=== PATIENT | male | born 1945 | race Caucasian/White ===

== ENCOUNTER 2017-04-24 08:50 | Inpatient (IN) | payer MEDICARE ==
[~2017-04-24] VITALS: Ht 180.3 cm; Wt 81.6 kg
--- NOTE | ~2017-04-24 | PR ---
[place], [place] PROGRESS NOTE NAME: ISAAC THAYER UNIT #: [id number] ROOM: 311 DOCTOR: SNEHA MULTANI,BRANNON BIRTHDATE: [birth year] DOS: CHIEF COMPLAINT: Sleepy. SUBJECTIVE: The patient is 71-year-old male admitted with brief psychotic reaction where he was very combative, was irritable and agitated and he was responding to the unseen. He is started on meds and today seen sitting in Angie chair in dining area. He is very drowsy, but did open his eyes, looked at me and then he dozed off. As per nurse's report, he has been calmer, had some sundowning last evening, did not sleep well last night, but now he is dozing off. He does need personal care and help him to feed. He had a little breakfast, took his meds and has been drinking fluids. MENTAL STATUS EXAMINATION: The patient is very drowsy, did not engage much, hardly any conversation, sitting in Angie chair. He is calmer at present. PLAN: The patient is calmer with current meds, so we shall continue with the same and provide personal care and shall try to engage him in guerrero milieu when he is more stable. BRANNON HOOVER MD CM:PNTRANS [id number] BRANNON HOOVER MD 04/27/17 1037 interface
--- NOTE | ~2017-04-24 | PR ---
[place], [place] PROGRESS NOTE NAME: ISAAC THAYER UNIT #: [id number] ROOM: 311 DOCTOR: KAREEN PIZARRO,MY BIRTHDATE: [birth year] DOS: 04/26/2017 CHIEF COMPLAINT: "Cough." SUMMARY OF THE VISIT: The patient was interviewed while sleeping in a reclined Angie chair in quiet room across the nurse station. The patient attempted to open his eyes and turn to sides when requested, but he was not able to. The conversation was short and limited to one word "uhuh". The patient sometimes nods his head. The patient appears somnolent secondary to medications. MENTAL STATUS: The patient is alert and awake somewhat secondary to medications effect. He is oriented to self only. According to staff, the patient is still aggressive. PLAN: We will increase Exelon patch to 13.3 every day. Continue Risperdal 1 mg twice daily to decrease his agitation and aggression and Namenda 5 mg b.i.d. We will continue to engage the patient in individual and guerrero milieu activity. The patient will be discharged when psychiatrically stable. MY KAREEN, DO GRADY ALVES MD CM:PNTRANS [id number] JOHN MATHUR DO 05/01/17 0726 interface
--- NOTE | ~2017-04-24 | PR ---
[place], [place] PROGRESS NOTE NAME: ISAAC THAYER UNIT #: [id number] ROOM: 311 DOCTOR: SNEHA MULTANI,BRANNON BIRTHDATE: [birth year] DOS: CHIEF COMPLAINT: He is sleepy. SUBJECTIVE: The patient is seen today, sitting in a Angie chair in dining area, eyes closed, did open his eyes, looked at me and then dozed off, did not say a word. As per nurse's report, he does get some agitation in the evening, otherwise he is calmer. He did eat 75% of his breakfast this morning. He does need personal care and help to feed. MENTAL STATUS EXAMINATION: The patient did open his eyes, looked at me and then dozed off. He did not say a word, though he has been calmer. No alan or hypomania at present and no overt psychosis. PLAN: The patient is calmer, not combative, accept in the evening hours when he has some restlessness, so we shall continue his care, continue his medicines and try and engage him in guerrero milieu when he is more stable. BRANNON HOOVER MD CM:PNDARIO 5 [phone] BRANNON HOOVER MD 04/28/17 100 interface
--- NOTE | ~2017-04-24 | PR ---
[place], [place] PROGRESS NOTE NAME: ISAAC THAYER UNIT #: [id number] ROOM: 311 DOCTOR: KAREEN PIZARRO,MY BIRTHDATE: [birth year] DOS: 04/26/2017 CHIEF COMPLAINT: "I don't want to kill myself because I am a [employer] and it is sin." SUMMARY OF THE VISIT: The patient was interviewed in his room after finishing approximately 90% of his breakfast. The patient did not sleep much last night according to him, said he was up, thinking of his throughout the night. He has been for 30+ years. She is the one taking care of all of his medications; therefore, he does not know which is for which. He has not had medications for at least 1 week since she has been hospitalized. The patient tears up when talking about his , Sera. States he does not have much relationship with his sons and that if he , they will not pay much attention. When offered to get up and go to dining room, he states he does not want to because he will be very tired due to his medical conditions. MENTAL STATUS: The patient is alert and oriented x 3. Mood is overwhelmingly depressed. The patient cried when talked about his and sons. No overt hallucinations or delusions noted. PLAN: We will increase Remeron to 22.5 mg at bedtime. We will engage the patient in individual and guerrero milieu activity, return home when the patient is psychiatrically stable. MY KAREEN, DO GRADY ALVES MD CM:PNTRANS [phone] MY KAREEN DO 04/26/17 1323 RAJI [email or web address].R
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
--- NOTE | ~2017-04-24 | PR ---
[place], [place] PROGRESS NOTE NAME: ISAAC THAYER UNIT #: [id number] ROOM: 311 DOCTOR: GRADY ALVES MD BIRTHDATE: [birth year] DOS: 04/29/2017 CHIEF COMPLAINT: The patient was nonverbal. SUMMARY OF THE VISIT: The patient was interviewed or attempted to be interviewed as he sat in a Angie chair in the quiet room. Nurses report that he had a very bad evening and he escalated rapidly, becoming both verbally and physically aggressive, requiring a p.r.n. intervention of Ativan, which was effective, but which caused some sedation and now somnolence. The patient continues by nursing report to fluctuate between periods of extreme lethargy with extreme combativeness. He is very hard to redirect and he processes commands very slowly and more often than not does not follow commands. Nurses also report he is having some issues with swallow, so we will follow up on this. MENTAL STATUS EXAMINATION: Mental status is limited today because of his lack of somnolence. PLAN: I will increase the Namenda from 5 mg twice a day to 10 mg in the morning and 5 mg at night, augmenting Exelon patch 13.3 mg a day. We will order a swallow evaluation to determine whether or not this is an issue and allow the hospitalist to treat accordingly. We will attempt to engage in individual and guerrero milieu activities, returning to the least restrictive environment when psychiatrically stable. GRADY ALVES MD CM:PNTRANS 0 6 GRADY ALVES MD 04/29/17 0908 interface
[2017-04-24] MEDS ORDERED: CENTRUM SILVER1 EAC2 PO (09:41)
[2017-04-24] MEDS ORDERED: ARICEPT10 M1 PO (09:41)
[2017-04-24] MEDS ORDERED: FLOMAX0.4 MG PO (09:42)
[2017-04-24] MEDS ORDERED: ZOLOFT25 MG PO (09:42)
[2017-04-24] MEDS ORDERED: MELATONIN1 MG PO (09:45)
[2017-04-24] MEDS ORDERED: SEROQUEL25 MG PO (09:46)
[2017-04-24 10:39] VITALS: BP 122/87
[2017-04-24 12:25] LABS: BASO % 0.2 % (0.0-1.0); EOS # 0.1 10*3/uL (0.0-0.4); HEMATOCRIT 36.1 % (42.0-52.0); HEMOGLOBIN 12.2 g/dl (14.0-18.0); LYMPH # 0.7 10*3/uL (1.3-4.4); LYMPH % 13.1 % (27.0-41.0); MEAN CELL VOLUME 95.5 fl (80.0-94.0); MEAN CORPUSCULAR HGB 32.3 pg (27.0-31.0); MEAN CORPUSCULAR HGB CONC 33.8 g/dl (33.0-37.0); MEAN PLATELET VOLUME 9.9 fl (9.6-12.3); MONO # 0.5 10*3/uL (0.1-1.0); MONO % 8.9 % (3.0-9.0); NEUT # 4.1 10*3/uL (2.3-7.9); NEUT % 75.6 % (47.0-73.0); PLATELET COUNT AUTOMATED 165 10*3/uL (130-400); RED BLOOD COUNT 3.78 10*6/uL (4.50-5.90); RED CELL DISTRI WIDTH 12.4 % (0-14.5); WHITE BLOOD COUNT 5.5 10*3/uL (4.8-10.8)
[2017-04-24 12:52] LABS: ALBUMIN 3.8 gm/dl (3.1-4.5); ALKALINE PHOSPHATASE 112 U/L (45-117); BUN 26 mg/dl (7-24); CHLORIDE 105 mmol/L (98-107); CHOLESTEROL 166 mg/dL (<200); CREATININE 1.04 mg/dL (0.70-1.30); HDL CHOLESTEROL 64 mg/dl (40-60); LDL CHOLESTEROL 85 mg/dL (9-159); POTASSIUM 4.1 mmol/L (3.5-5.1); SGOT/AST 19 IU/L (3-35); SGPT/ALT 22 U/L (12-78); SODIUM 140 mmol/L (136-145); TOTAL PROTEIN 7.1 gm/dL (6.4-8.2); TRIGLYCERIDES 85 mg/dl (<150); VLDL CHOLESTEROL 17 mg/dL (6-40)
[2017-04-24 13:28] LABS: VITAMIN D, 25-HYDROXY 13.3 ng/mL (30-100)
[2017-04-24 20:00] VITALS: BP 116/57
[2017-04-25 08:09] VITALS: BP 123/62
[2017-04-25 20:12] VITALS: BP 145/68
[2017-04-26 07:45] VITALS: BP 134/72
[2017-04-26 20:00] VITALS: BP 108/60
[2017-04-27 05:11] LABS: BASO % 0.5 % (0.0-1.0); EOS # 0.1 10*3/uL (0.0-0.4); EOS % 1.1 % (1.0-4.0); HEMATOCRIT 36.6 % (42.0-52.0); HEMOGLOBIN 12.5 g/dl (14.0-18.0); LYMPH # 0.9 10*3/uL (1.3-4.4); LYMPH % 13.5 % (27.0-41.0); MEAN CELL VOLUME 95.8 fl (80.0-94.0); MEAN CORPUSCULAR HGB 32.7 pg (27.0-31.0); MEAN CORPUSCULAR HGB CONC 34.2 g/dl (33.0-37.0); MONO # 0.7 10*3/uL (0.1-1.0); NEUT # 4.7 10*3/uL (2.3-7.9); NEUT % 73.6 % (47.0-73.0); PLATELET COUNT AUTOMATED 159 10*3/uL (130-400); RED BLOOD COUNT 3.82 10*6/uL (4.50-5.90); RED CELL DISTRI WIDTH 12.3 % (0-14.5); WHITE BLOOD COUNT 6.4 10*3/uL (4.8-10.8)
[2017-04-27 05:25] LABS: ALBUMIN 3.8 gm/dl (3.1-4.5); ALKALINE PHOSPHATASE 107 U/L (45-117); BUN 23 mg/dl (7-24); CHLORIDE 102 mmol/L (98-107); CREATININE 0.93 mg/dL (0.70-1.30); POTASSIUM 3.8 mmol/L (3.5-5.1); SGOT/AST 30 IU/L (3-35); SGPT/ALT 19 U/L (12-78); SODIUM 137 mmol/L (136-145); TOTAL PROTEIN 7.2 gm/dL (6.4-8.2)
[2017-04-27 08:00] VITALS: BP 118/72
[2017-04-27 19:50] VITALS: BP 111/64
[2017-04-28 07:53] VITALS: BP 110/67
[2017-04-28 20:00] VITALS: BP 115/76
[2017-04-29 05:37] LABS: BILIRUBIN 1+ (NEGATIVE); BLOOD NEGATIVE (NEGATIVE); CLARITY CLOUDY (CLEAR); COLOR YELLOW (YELLOW); GLUCOSE NEGATIVE (NEGATIVE); KETONE 2+ (NEGATIVE); LEUKO ESTERASE NEGATIVE (NEGATIVE); NITRITE NEGATIVE (NEGATIVE); SPECIFIC GRAVITY 1.025 (1.005-1.030)
[2017-04-29 05:49] LABS: BACTERIA 2+; CALCIUM OXALATE CRYSTALS 2+
[2017-04-29 07:38] LABS: ALBUMIN 3.3 gm/dl (3.1-4.5); ALKALINE PHOSPHATASE 96 U/L (45-117); BUN 24 mg/dl (7-24); CHLORIDE 103 mmol/L (98-107); CREATININE 0.94 mg/dL (0.70-1.30); POTASSIUM 3.8 mmol/L (3.5-5.1); SGOT/AST 26 IU/L (3-35); SGPT/ALT 20 U/L (12-78); SODIUM 141 mmol/L (136-145); TOTAL PROTEIN 6.9 gm/dL (6.4-8.2)
[2017-04-29 07:49] VITALS: BP 116/62
[2017-04-30] MEDS ORDERED: SEPTDS PO (14:17)
== END 2017-04-29 20:00 | disposition short-term general hospital (02) | DRG 57 ==
LOC: 3N 08:50
PROVIDERS: Internal Medicine; Registered Nurse; ADMIT Psychiatry & Neurology Psychiatry
DX: G30.9 Alzheimer's disease, unspecified (principal); F02.81 Dementia in other diseases classified elsewhere, unspecified severity, with behavioral disturbance; F23 Brief psychotic disorder; E55.9 Vitamin D deficiency, unspecified; N40.0 Benign prostatic hyperplasia without lower urinary tract symptoms; F99 Mental disorder, not otherwise specified; Z79.899 Other long term (current) drug therapy; Z91.018 Allergy to other foods

== ENCOUNTER 2017-04-29 19:55 | Inpatient (IN) | payer MEDICARE ==
[~2017-04-29] VITALS: Ht 185.4 cm; Wt 78.9 kg
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
--- NOTE | ~2017-04-29 | EKG ---
[place], [place] ELECTROCARDIOGRAM REPORT NAME: ISAAC THAYER UNIT #: [id number] ROOM: [place] [address] DOCTOR: LM MULTANI,LAURIE BIRTHDATE: [birth year] DOS: 04/29/2017 TIME: 2021. IMPRESSION: 1. Sinus rhythm, sinus tachycardia. 2. Right bundle-branch block. 3. First-degree AV block. 4. Baseline artifacts. LAURIE AMATO MD CM:EKGRPT:ELECTROCARDIOGRAM REPORT [id number] LAURIE AMATO MD
[~2017-04-29 19:55] MED LIST: ARICEPT10 M1 PO; CENTRUM SILVER1 EAC2 PO; FLOMAX0.4 MG PO; MELATONIN1 MG PO; SEROQUEL25 MG PO; ZOLOFT25 MG PO
[2017-04-29 20:00] VITALS: BP 137/83
--- NOTE | 2017-04-29 20:00 | NUR ---
A 71, admitted to ICCU, under the services of YARI Lee DO with a diagnosis of STROKE. Chief complaint is PATIENT CAME FROM [facility] UNRESPONSIVE. NURSE THAT BROUGHT PATIENT TO ICCU EXPLAINED THE PATIENT HAS BEEN UNRESPONSIVE ALL DAY. SHE STATES THE PATIENT HAS HAD NO MEDICATIONS TODAY DUE TO HIS REPONSIVENESS. PATIENT WAS TO HAVE A SWALLOWING EVAL DONE TODAY. IT WAS ALSO CANCELLED DUE TO CHANGE IN RESPONSIVENESS. PATIENT CAME TO ICCU FOLLOWING A BRAIN ATTACK CODE BEING CALLED. Patient arrived via stretcher from [place]. Monitor applied. Initial assessment completed. Vital signs taken and recorded. YARI LEE DO notified of admission to the unit. Orders received. See assessment for past medical history, medications and allergies. Patient and/or family oriented to unit. [facility]. Clothing/patient valuable form completed. ALVA CEBALLOS
--- NOTE | 2017-04-29 20:30 | NUR ---
[facility] STATES PATIENT WAS LIVING AT HOME AND HAD BECOME MORE CONFUSED, AGITATED AND COMBATIVE. SHE PLACED PATIENT IN [facility] ON SATURDAY. [facility] SAID THEY COULD NOT HANDLE HIS BEHAVIORS AND HE WAS THEN MOVED TO OUR [facility] UNIT ON SATURDAY LAST WEEK. PATIENT WAS A PATIENT OF DR. ALVES ON [facility]. HIS PRIMARY DOCTOR IS DR. KALEE MORAES OUT OF [facility]. PATIENT WAS DIAGNOSED WITH ALZHEIMERS IN 2012.
[2017-04-29 20:41] LABS: BASO % 0.2 % (0.0-1.0); EOS # 0.1 10*3/uL (0.0-0.4); HEMATOCRIT 36.4 % (42.0-52.0); HEMOGLOBIN 12.2 g/dl (14.0-18.0); LYMPH # 0.7 10*3/uL (1.3-4.4); LYMPH % 12.3 % (27.0-41.0); MEAN CELL VOLUME 96.3 fl (80.0-94.0); MEAN CORPUSCULAR HGB 32.3 pg (27.0-31.0); MEAN CORPUSCULAR HGB CONC 33.5 g/dl (33.0-37.0); MEAN PLATELET VOLUME 10.3 fl (9.6-12.3); MONO # 0.7 10*3/uL (0.1-1.0); MONO % 12.2 % (3.0-9.0); NEUT # 4.4 10*3/uL (2.3-7.9); NEUT % 73.8 % (47.0-73.0); PLATELET COUNT AUTOMATED 152 10*3/uL (130-400); RED BLOOD COUNT 3.78 10*6/uL (4.50-5.90); RED CELL DISTRI WIDTH 12.1 % (0-14.5)
[2017-04-29 21:02] LABS: PHOSPHOROUS 3.3 mg/dL (2.5-4.9)
[2017-04-29 21:04] LABS: BILIRUBIN 1+ (NEGATIVE); BLOOD 1+ (NEGATIVE); CLARITY CLEAR (CLEAR); COLOR YELLOW (YELLOW); GLUCOSE NEGATIVE (NEGATIVE); KETONE 1+ (NEGATIVE); LEUKO ESTERASE NEGATIVE (NEGATIVE); NITRITE NEGATIVE (NEGATIVE)
[2017-04-29 21:05] LABS: ALBUMIN 3.3 gm/dl (3.1-4.5); ALKALINE PHOSPHATASE 93 U/L (45-117); BUN 25 mg/dl (7-24); CHLORIDE 105 mmol/L (98-107); CREATININE 0.87 mg/dL (0.70-1.30); POTASSIUM 4.1 mmol/L (3.5-5.1); SGOT/AST 20 IU/L (3-35); SGPT/ALT 21 U/L (12-78); SODIUM 141 mmol/L (136-145); TOTAL PROTEIN 6.8 gm/dL (6.4-8.2)
[2017-04-29 21:13] LABS: BACTERIA 1+
[2017-04-29 21:14] LABS: EPITHELIAL CELLS 0-2
--- NOTE | 2017-04-29 23:18 | NUR ---
MED REC UPDATED FROM CURRENT HOME MEDICATION LIST THAT WAS PROVIDED BY [facility].
--- NOTE | 2017-04-29 23:20 | NUR ---
REPORTS THAT PATIENT WAS NEVER STARTED ON FLOMAX. I REMOVED FLOMAX FROM THE MED REC.
[2017-04-30] VITALS: BP 134/77
[2017-04-30 04:00] VITALS: BP 112/53
[2017-04-30 04:29] LABS: BASO % 0.4 % (0.0-1.0); EOS # 0.1 10*3/uL (0.0-0.4); EOS % 1.6 % (1.0-4.0); HEMATOCRIT 34.8 % (42.0-52.0); HEMOGLOBIN 11.8 g/dl (14.0-18.0); LYMPH # 0.7 10*3/uL (1.3-4.4); LYMPH % 13.2 % (27.0-41.0); MEAN CELL VOLUME 95.6 fl (80.0-94.0); MEAN CORPUSCULAR HGB 32.4 pg (27.0-31.0); MEAN CORPUSCULAR HGB CONC 33.9 g/dl (33.0-37.0); MEAN PLATELET VOLUME 10.4 fl (9.6-12.3); MONO # 0.7 10*3/uL (0.1-1.0); MONO % 13.6 % (3.0-9.0); NEUT # 3.5 10*3/uL (2.3-7.9); NEUT % 70.8 % (47.0-73.0); PLATELET COUNT AUTOMATED 145 10*3/uL (130-400); RED BLOOD COUNT 3.64 10*6/uL (4.50-5.90); WHITE BLOOD COUNT 4.9 10*3/uL (4.8-10.8)
[2017-04-30 04:46] LABS: ACT PARTIAL THROMBO TIME 23.1 SECONDS (20.8-31.5)
[2017-04-30 04:57] LABS: ALBUMIN 3.1 gm/dl (3.1-4.5); ALKALINE PHOSPHATASE 82 U/L (45-117); BUN 23 mg/dl (7-24); CHLORIDE 107 mmol/L (98-107); CREATININE 0.77 mg/dL (0.70-1.30); PHOSPHOROUS 2.9 mg/dL (2.5-4.9); POTASSIUM 3.7 mmol/L (3.5-5.1); SGOT/AST 28 IU/L (3-35); SGPT/ALT 19 U/L (12-78); SODIUM 142 mmol/L (136-145); TOTAL PROTEIN 6.4 gm/dL (6.4-8.2)
--- NOTE | 2017-04-30 06:47 | NUR ---
MRI SCREENING FORM FILLED OUT. I CALLED AND VERIFIED ALL ANSWERS WITH THE STEVIE. STATES HE HAD AN MRI IN 2013 DONE IN [facility]. [facility] PATIENTS PCP DR. MORAES WOULD HAVE THE RESULTS OF THE PREVIOUS MRI.
--- NOTE | 2017-04-30 07:13 | NUR ---
I CALLED [facility] AND NOTIFIED THEM OF DR. ALVES CONSULT. SHANDA SAID SHE WOULD NOTIFY HIM OF CONSULT WHEN HE COMES IN THIS MORNING.
[2017-04-30 08:00] VITALS: BP 146/73
--- NOTE | 2017-04-30 08:25 | NUR ---
cATATONIC, COUGH AND GAG INTACT . Pupils remain pinpoint. repositioned and bed set to rotation mode.
--- NOTE | 2017-04-30 08:42 | NUR ---
PHYSICAL THERAPY nursing screen received. Patient just transferred to [facility] from [facility]. Please order PT when medically appropriate. thank you. Linda Rubin,PT
--- NOTE | 2017-04-30 10:11 | NUR ---
Family in to visit. Physician requests MRI time frame. electro tech notified of physician request. Wound care team here to sabra.
--- NOTE | 2017-04-30 10:40 | NUR ---
SPEECH PATHOLOGY Screening complete. Patient is known to this dept. Orders for bedside swallow eval. were received yesterday while patient was on BHU however this was not able to be completed due to poor level of response. Patient has been transferred to ICCU. Reports indicate that patient is unresponsive. Due to this, he is not appropriate for assessment at this time however this dept. will remain available should future needs arise. KYLE KILPATRICK MSCCC-SENIOR JAVA WEB DEVELOPER
--- NOTE | 2017-04-30 11:41 | NUR ---
ISAAC THAYER [id number] Please refer to the physician's history and physical for past medical history, comorbid conditions, and allergies. Diagnosis: STROKE Brady Score: 11,HIGH RISK WOUND DESCRIPTIONS: Location of the wound: penis Type of wound: mucosal membrane pressure injury Thickness: Full Size: 1.5cm x 1.0cm x 0.1cm Tunneling: none Undermining: none Sinus Tract: none Presence of Exudate: Serous Amount: Light Color: Yellow, red Odor: None Periwound Skin Appearance: Normal Wound edges: approximated Pain (associated with wound): none at time of assessment How does patient state this happened? pt unable to state how this occured Location of the wound: right buttocks Type of wound: stage 2 Thickness: Partial Size: 0.7cm x 2.1cm x <0.cm Tunneling: none Undermining: none Sinus Tract: none Presence of Exudate: none Amount: None Color: Yellow Odor: None Periwound Skin Appearance: Normal Wound edges: closed, intact serum filled blister Pain (associated with wound): none at time of assessment How does patient state this happened? pt unable to state what happened Location of the wound: left posterior proximal thigh Type of wound: stage 2 Thickness: Partial Size: 9.0cm x 2.0cm x <0.1cm Tunneling: none Undermining: none Sinus Tract: none Presence of Exudate: none Amount: None Color: Yellow Odor: None Periwound Skin Appearance: Normal Wound edges: closed intact serum filled blister Pain (associated with wound): none at time of assessment How does patient state this happened? pt unable to state how this happened Location of the wound: left posterior distal thigh Type of wound: stage 2 Thickness: Partial Size: 8.1cm x 2.7cm x <0.1cm Tunneling: none Undermining: none Sinus Tract: none Presence of Exudate: none Amount: None Color: Yellow Odor: None Periwound Skin Appearance: Normal Wound edges: closed intact serum filled blister Pain (associated with wound): none at time of assessment How does patient state this happened? pt unable to state how this happened Patient has intact scab noted to left forearm. No drainage noted at present. No redness noted to surrounding area. Surface the patient is resting on: XPRT SKIN PREVENTION RECOMMENDATION: 1. Pressure redistribution support surface as appropriate 2. Elevate heels 3. Remove boots/TEDS every shift and reapply 4. Head of bed 30 degrees as tolerated 5. Assess nutrition and hydration 6. Manage moisture 7. Avoid the use of containment devices while in bed 8. Use absorptive products on surfaces limit layers of linens on bed 9. Turn and reposition every 1-2 hours in bed and every 1 hour in chair as tolerated 10. Weight shifts every 15 minutes while up in chair 11. Offloading with pillows or device to keep heels elevated off bed 12. Monitor skin at least every shift 13. Inspect under medical devices twice a day WOUND TREATMENT RECOMMENDATIONS: Cleanse penis with nss and apply neosporin and leave open to air. Cleanse right buttocks and left posterior thigh areas with nss and apply sureprep cover with adaptic then cover with abd.
[2017-04-30 12:00] VITALS: BP 114/69
--- NOTE | 2017-04-30 12:26 | NUR ---
ECHO ON HOLD PER DR BAUTISTA.
[2017-04-30] MEDS ORDERED: SEPTDS PO (14:17)
[2017-04-30 16:00] VITALS: BP 113/68
--- NOTE | 2017-04-30 16:11 | NUR ---
SW SPOKE WITH AND DTR ABOUT PLACEMENT AND HOSPICE SERVICES. WANTS PT TO GO TO [facility] WITH WHAT HOSPICE AGENCY GOES THERE. SW SPOKE WITH [facility] - RESEARCH AND DEVELOPMENT ENGINEER PAT[facility]. [facility] WILL ACEPT PT ON Saturday. [facility] STATED THAT IT IS $250 PER DAY OR APPROXIMATLEY $7,500 A MONTH. SW WILL LET FAMILY KNOW. RHETT SPOKE WITH AND DTR. SW INFROMED THAT [facility] HAS ACCEPTED PT TO COME ON Saturday. RHETT INFORMD THAT [facility] GOES TO [facility]. CHOOSE [facility]PICE [facility]. SW GAVE NUMBER TO RESEARCH AND DEVELOPMENT ENGINEER FOR [facility]. SW ADVISED TO CONTACT [employer] ABOUT FINANCES TO SEE WHEN TO APPLY FOR MEIDICAID. MADE AWARE OF COST OF FACILITY.
--- NOTE | 2017-04-30 16:18 | NUR ---
RHETT NOTIFIED HOSPITALIST OFFICE - ZEESHAN THAT PT WAS ACCEPTED AT [facility] AND CAN GO ON Saturday. SECOND CALL PLACED TO NOTIFY PAM THAT CHOOSE [facility] [place].
--- NOTE | 2017-04-30 19:24 | NUR ---
24 HR chart check completed.
[2017-04-30 20:00] VITALS: BP 137/65
[2017-05-01] VITALS: BP 138/69
--- NOTE | 2017-05-01 00:16 | NUR ---
PATIENT 87% ON ROOM. OXYGEN APPLIED AND TITRATED. PATIENT IS NOW 92% ON 15L NON-REBREATHER.
[2017-05-01 04:00] VITALS: BP 139/72
[2017-05-01 08:00] VITALS: BP 140/77
--- NOTE | 2017-05-01 09:50 | NUR ---
SW SCHEDULED TRANSPORTATION WITH [facility] FOR GLACIOLOGIST BETWEEN 12 -1PM TO GO [facility]. SW NOT[facility].
--- NOTE | 2017-05-01 10:01 | NUR ---
RHETT NOTIFIED STEVIE THAT [facility] WAS PICKING UP PT BETWEEN 12-1PM TO TRANPSORT TO [facility].
--- NOTE | 2017-05-01 10:39 | NUR ---
Opens eyes spontaneously, cough and gag intact. Mumbling, incomprehensable. Opens mouth for oral care ( given q2h) Complete bed bath given, facial shave and all dressings changed per order. Rosa rico and IV dc'd. [facility] Spouse notied per case mgt. Transport pending at 12-1pm. Awaiting [facility] for transport.
--- NOTE | 2017-05-01 12:06 | NUR ---
[facility] HERE TO TRANSPORT PT TO [facility].
== END 2017-05-01 12:06 | disposition hospice, home (50) | DRG 57 ==
LOC: ICCU 19:55
PROVIDERS: Family Medicine; ADMIT Internal Medicine
DX: G91.2 (Idiopathic) normal pressure hydrocephalus (principal); F03.91 Unspecified dementia, unspecified severity, with behavioral disturbance; D53.9 Nutritional anemia, unspecified; R17 Unspecified jaundice; F23 Brief psychotic disorder; R79.82 Elevated C-reactive protein (CRP); N40.0 Benign prostatic hyperplasia without lower urinary tract symptoms; Z51.5 Encounter for palliative care; Z66 Do not resuscitate; E55.9 Vitamin D deficiency, unspecified; Z91.018 Allergy to other foods; Z79.899 Other long term (current) drug therapy